=== PATIENT | male | born 1995 | race African-American/Black ===

== ENCOUNTER 2020-02-17 11:09 | Emergency (ER) | payer OTHER, SELFPAY ==
[~2020-02-17] VITALS: Ht 167.6 cm; Wt 51.1 kg
[2020-02-17] MEDS ORDERED: LIDOCAINE 1% SDV 5ML VIAL DILUENT ONE (11:30)
[2020-02-17] MEDS ORDERED: AZITHROMYCIN 250MG TABLET PO ONE (11:30)
[2020-02-17] MEDS ORDERED: cefTRIAXone SOD 250MG VIAL (J0696 PER 250MG) IM ONE (11:30)
--- NOTE | 2020-02-17 12:32 | REP ---
INDICATION: right testicular pain. COMPARISON: None. TECHNIQUE: High-resolution bilateral scrotal sonography. FINDINGS: The right testis and right epididymis are hyperemic. The right epididymis is enlarged compared to the left. The findings are consistent with epididymitis/orchitis on the right side. No intratesticular mass lesion is seen on either side. Right testicular dimensions are 2.8 x 1.6 x 2.3 cm. Left testis measurements are 3.3 x 1.5 x 2.3 cm. Doppler flow is present in both testes, resistive indices 0.52 on the right and 0.43 on the left. There is a tiny sliver of right-sided hydrocele fluid. There is no evidence of abscess. IMPRESSION: Hyperemia of the right testis and hyperemia and enlargement of the right epididymis consistent with epididymo-orchitis on the right. No intratesticular mass lesion seen. Doppler flow present bilaterally in the testes. <Electronically signed by Christian Reyes > 02/17/20 1978
[2020-02-17] MEDS ORDERED: DOXY100C37 PO (12:50)
[2020-02-17 13:05] VITALS: BP 131/66
[2020-02-17 13:47] LABS: CHLAMYDIA DNA AMPLIFICATION POSITIVE (NEGATIVE); GC DNA AMPLIFICATION POSITIVE (NEGATIVE)
== END 2020-02-17 13:06 | disposition home or self-care (01) ==
LOC: M ED 11:09
DX: N45.1 Epididymitis (principal); N45.2 Orchitis; N34.2 Other urethritis; F17.210 Nicotine dependence, cigarettes, uncomplicated
CPT/HCPCS: 76870; 81001; 87086; 87661; 93976; 96372; 99283; J0696

== ENCOUNTER → 2020-04-27 | Outpatient (CLI) | payer SELFPAY ==
[~2020-04-27] MED LIST: DOXY100C37 PO
== END ==
LOC: M LABSMTC 10:31
PROVIDERS: ATTEND Pediatrics
DX: Z20.822 Contact with and (suspected) exposure to COVID-19 (principal)

== ENCOUNTER → 2020-05-23 | Outpatient (CLI) | payer SELFPAY | LOC: M LABSMTC 10:19 | PROVIDERS: ATTEND Pediatrics | DX: Z20.822 Contact with and (suspected) exposure to COVID-19 (principal) ==

== ENCOUNTER → 2020-07-30 | Outpatient (CLI) | payer SELFPAY | LOC: M LABSMTC 09:46 | PROVIDERS: ATTEND Pediatrics | DX: Z20.822 Contact with and (suspected) exposure to COVID-19 (principal) ==

== ENCOUNTER 2020-09-12 15:06 | Emergency (ER) | payer SELFPAY ==
[~2020-09-12] VITALS: Ht 165.1 cm; Wt 51.7 kg
[~2020-09-12 15:06] MED LIST changes: -DOXY100C37 PO; +DOXY1CAP62 PO
[2020-09-12] MEDS ORDERED: PRED20TA PO (16:08)
[2020-09-12 16:23] VITALS: BP 133/72
== END 2020-09-12 16:22 | disposition home or self-care (01) ==
LOC: M ED 15:06
DX: R22.0 Localized swelling, mass and lump, head (principal); T78.40XA Allergy, unspecified, initial encounter

== ENCOUNTER 2020-11-13 01:06 | Emergency (ER) | payer OTHER, SELFPAY ==
[~2020-11-13] VITALS: Ht 165.1 cm; Wt 50.8 kg
[~2020-11-13 01:06] MED LIST changes: +DOXY-443 PO; -DOXY1CAP62 PO; +PRED20TA PO
[2020-11-13 01:07] VITALS: BP 140/89
== END 2020-11-13 03:00 | disposition left against medical advice (07) ==
LOC: M ED 01:06
DX: Z53.29 Procedure and treatment not carried out because of patient's decision for other reasons (principal)